=== PATIENT | female | born 1985 | race Caucasian/White ===

== ENCOUNTER → 2016-08-14 | Outpatient (CLI) | payer MEDICAID ==
[~2016-08-14] MED LIST: ACET325T51 PO; AMPH20TA3 PO; AMPH30TA4 PO; ARIP5TAB PO; BREX1TAB PO; DOXY100C2 PO; FLUO20CA30 PO; HYDR-4246 PO; IBUP-1724 PO; PARO10TA16 PO
--- NOTE | 2016-08-14 16:00 | DI ---
Indication: ITS.REASON: N92.0 SPOTTING; Z97.[address]; N94.10 DYSPAREUNIA IN FEMALE PROCEDURE: US PELVIC NON OB W/TRANS VAG: Encounter: Initial Comparison: None FINDINGS: Transvaginal and transabdominal pelvic imaging was performed. The uterus measures 9.9 x 3.6 x 4.4 cm. The parenchyma is homogeneous without fibroids. The endometrial stripe appears normal with an appropriately positioned IUD. Both ovaries are identified and normal in appearance. The right ovary measures 2.7 x 2.1 x 1.7 cm. The left ovary measures 3.7 x 1.7 x 1.4 cm. There are no abnormal adnexal masses detected. No free fluid. Doppler flow to both ovaries. IMPRESSION: Iodine appears appropriate position by ultrasound. Unremarkable pelvic sonogram. .
== END ==
LOC: IMA 14:47
PROVIDERS: ATTEND Registered Nurse
DX: N92.0 Excessive and frequent menstruation with regular cycle (principal); N94.10 Unspecified dyspareunia; Z97.5 Presence of (intrauterine) contraceptive device

== ENCOUNTER 2016-08-23 11:06 | Emergency (ER) | payer MEDICAID ==
[~2016-08-23] VITALS: Ht 167.6 cm; Wt 79.2 kg
[~2016-08-23 11:06] MED LIST changes: -ACET325T51 PO; -AMPH20TA3 PO; -BREX1TAB PO; -DOXY100C2 PO; -FLUO20CA30 PO; -HYDR-4246 PO
[2016-08-23 11:10] VITALS: Ht 167.6 cm; Wt 79.2 kg
--- OUTSIDE RECORDS SUMMARY | 2016-08-23 11:12 | XMS REPORT ---
Author Tk Scruggs Organization [employer] Address Unknown Phone Unavailable Care Team Providers Care Multimedia Programmer Name Role Phone Tk Gillette CP Unavailable Allergies, Adverse Reactions, Alerts Substance Reaction Event Type Cefaclor hives Drug Allergy Problems Problem Type Condition Code Onset Dates Condition Status Problem Generalized anxiety disorder 300.02 Active Assessment Pain in left foot M79.672 Active Problem Gastro-esophageal reflux disease without esophagitis K21.9 Active Assessment Gastro-esophageal reflux disease without esophagitis K21.9 Active Assessment Frequency of micturition R35.0 Active Assessment Localized swelling, mass and lump, left lower limb R22.42 Active Assessment Plantar fascial fibromatosis M72.2 Active Medications Medication Code System Code Instructions Start Date End Date Status Dosage Tylenol [facility] [address]-72 325 MG Orally every 6 hrs Feb 18, 2016Jan 1 to 2 tablets as needed for pain Flonase [facility] [address]-21 50 MCG/ACT Nasally Once a day Jan 03, 2015 1 spray in each nostril Aleve [facility] [address]-21 220 MG Orally every 12 hrs 1 tablet as needed Adderall [facility] [address]-57 30 MG Orally BID 1 tablet Abilify [facility] [address]-07 5 MG Orally Once a day .5 tablet Prozac NDC 0 20 Oral DAILY 1 Procedures Procedure Coding System Code Date OFFICE VISIT, EST-LOW COMPLEXITY (15 MIN.) CPT-4 79324 Feb 18, 2016 Vital Signs Date/Time: Feb 18, 2016 Temperature 98.3 F Height 65 in Weight 170.12 lbs Blood Pressure Diastolic 74 mm Hg Blood Pressure Systolic 116 mm Hg Cardiac Monitoring Heart Rate 103 /min BMI 28.31 Index Oximetry 96 % Results No Known Results Summary Purpose [employer] Submission
--- OUTSIDE RECORDS SUMMARY | 2016-08-23 11:12 | XMS REPORT ---
Author Author Tk Gillette Organization [employer] Address Unknown Phone Unavailable Care Team Providers Care Real Estate Office Supervisor Name Role Phone Tk Gillette CP Unavailable Allergies No Known Allergies Problems Problem Type Condition Code Onset Dates Condition Status Problem Generalized anxiety disorder 300.02 Active Assessment Frequency of micturition R35.0 Active Problem Gastro-esophageal reflux disease without esophagitis K21.9 Active Assessment Localized swelling, mass and lump, left lower limb R22.42 Active Medications No Known Medications Results No Known Results Summary Purpose [employer] Submission
--- OUTSIDE RECORDS SUMMARY | 2016-08-23 11:12 | XMS REPORT ---
Author Author Ann Mejía Organization [employer] Address Unknown Phone Unavailable Care Team Providers Care Cleaning Attendant Name Role Phone Ann Mejía CP Unavailable Allergies No Known Allergies Problems Problem Type Condition Code Onset Dates Condition Status Problem Generalized anxiety disorder 300.02 Active Assessment Localized swelling, mass and lump, left lower limb R22.42 Active Problem Gastro-esophageal reflux disease without esophagitis K21.9 Active Assessment Pain in left foot M79.672 Active Assessment Frequency of micturition R35.0 Active Medications No Known Medications Procedures Procedure Coding System Code Date URINE CULTURE CPT-4 05984 Feb 19, 2016 TEST, IN HOUSE CPT-4 54849 Feb 19, 2016 Results No Known Results Summary Purpose [employer] Submission
--- OUTSIDE RECORDS SUMMARY | 2016-08-23 11:12 | XMS REPORT | Continuity of Care Document ---
Author Author [facility] Organization [facility] Address Unknown Phone Unavailable Support Name Relationship Address Phone SEPTEMBER, PHAN Koehler DO Caregiver [address] [place] [address] Unavailable LAZARO BANGURA DO Caregiver [address] [place] [address] Unavailable ALEXIA CHAPMAN Next Of Kin [address] [place] [address] Insurance Providers Guarantor Linda Nance Address [address] [place] [address] Email [email or web address] Payer [employer] Other Policy Number [id number] Subscriber's Name Linda Nance Relationship 18 Self Group Number [id number] Advance Directives Directive Response Recorded Date/Time Advanced Directives Type None 02/21/16 6:20am Chief Complaint and Reason for Visit Chief Complaint General Reason for Visit Nonallopathic lesion of lower extremities Common peroneal neuropathy Problems Active Problems Medical Problem Onset Date Status Blocked eustachian tube Unknown Acute Blocked eustachian tube Unknown Acute Cephalalgia Unknown Acute Hx of otitis media Unknown Acute MIGRAINE Unknown Acute Otalgia of right ear Unknown Acute Passive suicidal ideations Unknown Acute URI Unknown Acute UTI (urinary tract infection) Unknown Acute Viral syndrome Unknown Acute Past Problems Medical Problem Onset Date Common peroneal neuropathy Unknown Nonallopathic lesion of lower extremities Unknown Medications Current Home Medications Medication Dose Units Route Directions Days Qty Instructions Start Date Amphetamine/Dextroamphetamine (Adderall) 30 Mg Tablet 30 Mg Oral Twice A Day 05/14/12 Aripiprazole (Abilify) 5 Mg Tablet 5 Mg Oral Daily 05/14/12 Ibuprofen 200 Mg Tablet 400 Mg Oral Every 4 Hours as needed for Pain 09/10/15 Paroxetine Hcl (Paxil) 10 Mg Tablet 10 Mg Oral Daily 09/10/15 Past Home Medications Medication Directions Ordered Status Acetaminophen (Tylenol) 500 Mg Tablet, Tab Oral As Needed 09/05/11 Discontinued Acetaminophen (Tylenol Extra Strength) 500 Mg Tablet, 500 Mg Oral 10/12/09 Discontinued Amphetamine/Dextroamphetamine (Adderall) 30 Mg Tablet, 60 Mg Oral Daily 11/27 Discontinued Aripiprazole (Abilify) 5 Mg Tablet, 2.5 Mg Oral Daily 12/27/10 Discontinued Aripiprazole (Abilify) 2 Mg Tablet, 2.5 Mg Oral Daily 02/03/10 Discontinued Diflucan , 05/14/12 Discontinued Diphenhydramine Hcl (Benadryl) 25 Mg Capsule, 25 Mg Oral As Needed 12/11/11 Discontinued Lorazepam (Ativan) 1 Mg Tablet, 1 Mg Oral As Needed 02/03/10 Discontinued Naproxen Sodium (Aleve) 220 Mg Tablet, As Needed 01/05/10 Discontinued Ondansetron Hcl (Zofran) 4 Mg Tablet, 4 Mg Oral As Needed 12/11/11 Discontinued Paroxetine Hcl (Paxil) 10 Mg Tablet, 20 Mg Oral Daily 02/03/10 Discontinued Paroxetine Hcl (Paxil) 20 Mg Tablet, 20 Mg Oral Daily 08/27/09 Discontinued Promethazine Hcl (Phenergan) 25 Mg Tablet, 25 Mg Oral As Needed 12/11/11 Discontinued Xanax , Oral As Needed 12/27/10 Discontinued Zofran , As Needed 09/23/08 Discontinued Social History Social History Problem Response Recorded Date/Time Onset Date Status Chewing Tobacco Status No 02/21/2016 6:20am Not Applicable Not Applicable Hx Substance Use No 02/21/2016 6:20am Not Applicable Not Applicable Hx Alcohol Use No 02/21/2016 6:20am Not Applicable Not Applicable Tobacco Usage smoke 10/30/2014 7:34pm Not Applicable Not Applicable Query Response Start Date Stop Date Smoking Status Current every day smoker Hospital Discharge Instructions No hospital discharge instructions. Plan of Care Discharge Date 02/21/16 8:50am Disposition 01 DISCHARGED HOME, SELF-CARE Condition at Discharge Improved Instructions/Education Provided Peripheral Neuropathy Prescriptions See Medication Section Referrals LAZARO BANGURA DO Order Date: 1 Week Address: [address] [place] [phone] Note: Additional Instructions/Education Your nerve was compressed behind your left fibula (leg bone). It is now no longer trapped. There was no evidence of a pinched nerve in your back or of a deep vein thrombosis. Take OTC meds as needed for pain. Follow up with your doctor. Care Plan and Goals Physician Care Plan Problem: Common peroneal neuropathy Goal: Follow up with primary care provider Instructions: Take medications and follow care plan as discussed/written Functional Status No functional status results. Allergies, Adverse Reactions, Alerts Allergen Type Severity Reaction Status Last Updated Cefaclor Allergy Severe HIVES Active 02/21/16 Immunizations Query Response on File Recorded Date/Time Hx Influenza Vaccination No 12/30/14 10:15pm Hx Pneumococcal Vaccination No 12/30/14 10:15pm Hx Tetanus, Diptheria, Pertussis No 12/30/14 10:15pm Hx Influenza Vaccination No 12/30/14 10:15pm Hx Tetanus, Diptheria, Pertussis No 12/30/14 10:15pm Influenza Vaccine Hx NOT IN PAST 12 MONTHS 02/21/16 6:20am Vital Signs Acute Vital Signs Vital Response Date/Time Temperature (Fahrenheit) 98.1 deg F (96.8 - 99.1) 02/21/2016 8:50am Temperature (Calculated Celsius) 36.20249 degrees C (36.0 - 37.3) 02/21/2016 8:50am Pulse Rate (adult) 78 bpm (60 - 100) 02/21/2016 8:50am Respiratory Rate 16 breaths/min (10 - 20) 02/21/2016 8:50am O2 Sat by Pulse Oximetry 98 % (90 - 100) 02/21/2016 8:50am Blood Pressure 133/71 mm Hg 02/21/2016 8:50am Height (Feet) 5 feet 02/21/2016 6:20am Height (Inches) 4.50 inches 02/21/2016 6:20am Weight (Kilograms) 77.000 kg 02/21/2016 6:20am Body Mass Index (BMI) 28.0 02/21/2016 6:20am Results Laboratory Results Test Name Result Units Flags Reference Collection Date/Time Result Date/ Time Comments Urine Collection Type CLEANCATCH-MIDSTREAM 02/18/2016 4:14pm 2015 4:24pm Urine Color YELLOW YELLOW 02/18/2016 4:14pm 02/18/2016 4:24pm Urine Turbidity CLEAR CLEAR 02/18/2016 4:14pm 02/18/2016 4:24pm Urine Specific [place] 1.010 L 1.015-1.025 02/18/2016 4:14pm 2015 4:24pm Urine pH 6.0 5.0-8.0 02/18/2016 4:14pm 02/18/2016 4:24pm Urine Leukocyte Esterase 2+ A NEGATIVE 02/18/2016 4:14pm 02/18/2016 4: 24pm Urine Nitrite NEGATIVE NEGATIVE 02/18/2016 4:14pm 02/18/2016 4:24pm Urine Protein NEGATIVE NEGATIVE 02/18/2016 4:14pm 02/18/2016 4:24pm Urine Glucose (UA) NEGATIVE NEGATIVE 02/18/2016 4:14pm 02/18/2016 4: 24pm Urine Ketones NEGATIVE NEGATIVE 02/18/2016 4:14pm 02/18/2016 4:24pm Urine Urobilinogen 0.2 EU/DL NORMAL 02/18/2016 4:14pm 02/18/2016 4: 24pm Urine Bilirubin NEGATIVE NEGATIVE 02/18/2016 4:14pm 02/18/2016 4: 24pm Urine Blood TRACE-LYSED A NEGATIVE 02/18/2016 4:pm 02/18/2016 4: 24pm Urine WBC 10-20 /HPF H 0-5 02/18/2016 4:14pm 02/18/2016 4:58pm Urine RBC 0-1 /HPF 0-3 02/18/2016 4:14pm 02/18/2016 4:58pm Urine Squamous Epithelial Cells 10-20 02/18/2016 4:14pm 02/18/2016 4:58pm Urine Bacteria TRACE H NEGATIVE 02/18/2016 4:14pm 02/18/2016 4:58pm Urine Culture Indicated CULT NOT INDICATED 02/18/2016 4:14pm 2015 4:58pm White Blood Count 9.7 T/MM3 4.5-11.0 02/21/2016 7:04am 02/21/2016 7: 09am Red Blood Count 5.03 M/MM3 4.00-5.20 02/21/2016 7:04am 02/21/2016 7: 09am Hemoglobin 15.4 GM/DL 12-16 02/21/2016 7:04am 02/21/2016 7:09am Hematocrit 45.2 % 36-46 02/21/2016 7:04am 02/21/2016 7:09am Mean Corpuscular Volume 89.9 UM3 80-100 02/21/2016 7:04am 02/21/2016 7: 09am Mean Corpuscular Hemoglobin 30.6 UUG 26-34 02/21/2016 7:04am 2015 7:09am Mean Corpuscular Hemoglobin Concent 34.1 GM/DL 31-37 02/21/2016 7:04am 02/21/2016 7:09am RDW Standard Deviation 41.9 FL 36.9-50.2 02/21/2016 7:04am 02/21/2016 7 :09am Platelet Count 291 T/MM3 130-400 02/21/2016 7:04am 02/21/2016 7:09am Mean Platelet Volume 8.7 UM3 L 9.4-12.4 02/21/2016 7:04am 02/21/2016 7: 09am Prothromb Time International Ratio 0.90 L 0.99-1.21 02/21/2016 7:04am 02/21/2016 7:29am THERAPUTIC RANGE=2.00-3.00 FOR ANTI-THROMBOSIS THERAPUTIC RANGE=2.50-3.50 FOR IMPLANTED VALVE D-Dimer < 150 NG/ML 0-230 02/21/2016 7:04am 02/21/2016 7:29am <230 NG/ ML D-DU=PRESUMPTIVE NEGATIVE FOR PE OR DVT >230 NG/ML D-DU=ADDITIONAL EVAL FOR PE OR DVT RECOMMENDED Name: LINDA NANCE Unit #: [id number] : 1985 Sex: F Admit Date: Loc / Svc: ED Discharge Date: DIAGNOSTIC IMAGING REPORT Report #: [id number] [facility] [place] Indication: ITS.REASON: S1 nerve root pain PROCEDURE: SACRUM COCCYX: Encounter: Initial Comparison: None Findings/ Impression: No displaced sacrococcygeal fracture seen. . Procedures No known history of procedures. Encounters Encounter Location Arrival/Admit Date Discharge/Depart Date Attending Provider Departed Emergency Room [facility] 02/21/16 6:18am 02/21/16 8: 50am SEPTEMBERPHAN DO Registered Clinic [facility] 02/18/16 3:32pm LAZARO BANGURA DO Recent Diagnosis
--- OUTSIDE RECORDS SUMMARY | 2016-08-23 11:12 | XMS REPORT ---
Author Author Tk Gillette Organization [employer] Address Unknown Phone Unavailable Care Team Providers Care Die Cleaner Name Role Phone Tk Gillette CP Unavailable Allergies No Known Allergies Problems Problem Type Condition Code Onset Dates Condition Status Problem Generalized anxiety disorder 300.02 Active Problem Gastro-esophageal reflux disease without esophagitis K21.9 Active Medications No Known Medications Results No Known Results Summary Purpose [employer] Submission
[2016-08-23 12:27] LABS: BLOOD, URINE NEGATIVE (NEGATIVE); COLOR,URINE YELLOW (YELLOW); LEUKOCYTE ESTERASE ,URINE NEGATIVE (NEGATIVE); NITRITE,URINE NEGATIVE (NEGATIVE); UROBILINOGEN,URINE 0.2 EU/DL (NORMAL)
--- NOTE | 2016-08-23 12:51 | ERPDOC ---
Departure Disposition Decision Date: Aug 23, 2016 Disposition Decision Time: 15:59 (LALO GARAY APRN) Disposition: 01 DISCHARGED HOME, SELF-CARE Impression Impression (LALO GARAY APRN) Impression: Primary Impression: Pelvic pain Condition: Improved Seen By: Mid-level only (LALO GARAY APRN) Referrals: LAZARO BANGURA DO (Family) Patient Instructions: Pelvic Pain (ED) Problems/Meds/Labs Reviewed?: Yes Medications reviewed and manag: Yes (LALO GARAY APRN) Additional Instructions: Finish already prescribed doxycycline. You may take OTC ibuprofen 800mg every 8 hours for pain. You may take norco 5/325mg, 1-2 tabs every 6 hours for pain as needed. Medication may cause drowsiness so avoid operating heavy machinery, driving or drinking alcohol while taking. If your symptoms are not improving after finishing her doxycycline follow with health ministries or other provider of choice for possible removal of IUD, sooner if worsting symptoms. Follow treatment plan. Follow up care ordered?: Yes Mental Status: Alert, Oriented (LALO GARAY APRN) Scripts Hydrocodone/Acetaminophen (Tracy 5-325 Tablet) 5-325 Tablet 1-2 TAB PO Q6HPRN for PAIN, #15 TAB Prov: LALO GARAY APRN 08/23/16 HPI - Female General Chief Complaint: Female Urogenital Problems Stated Complaint: SHARP ABD PAIN Time Seen by Provider: 12:51 Source: patient (LALO GARAY APRN) Time Seen by Provider: 12:51 (TONO WINKLER DO) HPI - Female Initial Comments 31 YO F present to ED with pelvic pain for past 2 weeks. Patient was seen at and had normal labs and pelvic swabs per patients. Patient also had US to r/o ovarian cyst. Patient says that pain initially was intermittent but it has become more constant over last 1-2 days. Patient denies fever, chills, nausea, vomiting, diarrhea, constipation, dysuria or urinary frequency. Patint is in a monogamous relationship for greater than 3 months. Patient has an IUD in which is been in for approximately 4-1/2 years is scheduled to come out in January of this year. Patient states that since she had a IUD placed she has had no periods, however states that recently she's had occasional spotty. Patient was started on doxycycline 3 days ago. Pain Scale: Now: 5/10 Severity/Quality: cramping, sharpness Associated Symptoms: DENIES: diaphoresis, dysuria, fever/chills, loss of bladder control, lower back pain, lumps, nausea/vomiting, nocturia, polyuria, urinary frequency Expected Date of Delivery: Dec 31, 2011 : 4 Para: 2 (LALO GARAY APRN) Allergies: Coded Allergies: cefaclor (Verified Allergy, Severe, HIVES, 08/23/16) 1 - Reports pain (LALO GARAY INFORMATION RECEPTIONIST) Past History Past Medical History ENMT: ear infections Cardiac: DENIES: angina Hx Echocardiogram: No Respiratory: DENIES: asthma GI: DENIES: ulcers Female: kidney stones Neurological: migraines Musculoskeletal: back pain Psychological: ADHD, bipolar, depression (LALO GARAY INFORMATION RECEPTIONIST) Surgical History General: gallbladder, other, tonsils Reproductive/: tubal ligation (LALO GARAY APRN) Family History Family PMH: FOUND: other (noncontributory) (LALO GARAY APRN) Vaccines Hx Influenza Vaccination: No Hx Pneumococcal Vaccination: No Hx Tetanus, Diptheria, Pertuss: No (LALO GARAY INFORMATION RECEPTIONIST) Social History Sexuality: male partner (LALO GARAY APRN) Review of Systems Constitutional Constitutional: DENIES: chills, dizziness, fever, weakness (LALO GARAY INFORMATION RECEPTIONIST) Eyes General: DENIES: erythema, exudate Lids/Accessories: DENIES: erythema, swelling (LALO GARAY APRN) ENMT Ears: DENIES: pain Hearing: DENIES: hearing loss Sinuses: DENIES: congestion, rhinorrhea Mouth/Throat: DENIES: sore throat (LALO GARAY INFORMATION RECEPTIONIST) Cardiovascular Cardiac: DENIES: chest pain, murmur Rhythm/Rate: DENIES: palpitations (LALO GARAY INFORMATION RECEPTIONIST) Pulmonary Respiratory: DENIES: cough, dyspnea (LALO GARAY INFORMATION RECEPTIONIST) GI Upper Abdomen: DENIES: nausea, pain, vomiting Lower Abdomen: pain, see HPI, DENIES: diarrhea (LALO GARAY INFORMATION RECEPTIONIST) General: DENIES: dysuria, pain (LALO GARAY INFORMATION RECEPTIONIST) Musculoskeletal General: DENIES: joint pain, pain, tenderness (FAWAD AGRAYS A INFORMATION RECEPTIONIST) Integumentary Skin: DENIES: color change, itching, rash (FAWAD GARAYS A INFORMATION RECEPTIONIST) Neurological General: DENIES: ataxia, change in strength, numbness, paralysis/paresis, weakness (FAWAD GARAYS A INFORMATION RECEPTIONIST) Psychiatric Psychiatric: DENIES: anxiety, depression, nervousness (FAWAD GARAYS A INFORMATION RECEPTIONIST) Physical Exam General General Nourishment: well nourished, well developed, no acute distress, adult General Body Habitus: well groomed (FAWAD GARAYS A INFORMATION RECEPTIONIST) Vitals and Pain First Documented Vital Signs Date Time Temp Pulse Resp B/P Pulse Ox O2 Delivery O2 Flow Rate FiO2 08/23/16 11:10 97.2 96 14 122/87 95 Room Air (TONO WINKLER DO) Vitals and Pain Weight: Kilograms: 79.200 Height (feet): 5 Height (inches): 6.00 Triage Pain Scale: (FAWAD GARAYS A INFORMATION RECEPTIONIST) Eyes (brief) Eyes Brief: found: EOMI (FAWAD GARAYS A INFORMATION RECEPTIONIST) ENMT (brief) ENMT Brief: NOT FOUND: nasal exudate, nasal swelling, pharnyx erythema (FAWAD GARAYS A INFORMATION RECEPTIONIST) Neck (brief) Neck: FOUND: trachea midline (FAWAD GARAYS A INFORMATION RECEPTIONIST) Respiratory (brief) Respiratory: FOUND: clear all gonzales, equal bilaterally, symmetrical (FAWAD GARAYS A INFORMATION RECEPTIONIST) Cardiovascular (brief) Cardiac: FOUND: regular rate, regular rhythm (FAWAD GARAYS A INFORMATION RECEPTIONIST) Abdomen Palpation: FOUND: soft, tender (mild TTP over right pubic area), NOT FOUND: McBurney's point tender, hepatomegaly, involuntary guarding, rebound, splenomegaly, voluntary guarding Auscultation: FOUND: hypoactive (x4) (TANISHALALO A INFORMATION RECEPTIONIST) Musculoskeletal (brief) Musculoskeletal Brief: NOT FOUND: deformity, tenderness (GARAYLALO A INFORMATION RECEPTIONIST) Integumentary (brief) Integumentary Brief: FOUND: dry, pink, warm (TANISHALALO A INFORMATION RECEPTIONIST) Neurologic (brief) Neurological Brief: FOUND: CN w/o gross def to obs, motor-no gross deficits, sensory-no gross deficits (GARAYFAWADS A INFORMATION RECEPTIONIST) Psychiatric (brief) Psychiatric Brief: FOUND: alert, normal affect, oriented (LALO GARAY APRN ) Differential Diagnoses Considering: Endometriosis, Endometritis, PID, UTI, Bacterial Vaginitis, Yeast Vaginitis (ALLO GARAY APRN) Progress Results/Orders Orders Procedure Category Date Status Time Ua, Dip Wreflex LAB 08/23/16 Complete Microsc & Virology Teacher LAB 08/23/16 Complete Qualitative, Urine 12:20 Cbc W/Auto LAB 08/23/16 Complete Diff-Reflex Manual Bmp - Basic Metabolic LAB 08/23/16 Complete Panel Iv Lock (Ed Only) EDM 08/23/16 Transmitted 13:58 Morphine Sulfate PHA 08/23/16 Complete (Morphine) 14:00 Ondansetron Inj PHA 08/23/16 Complete (Zofran) 14:00 Ct Abd/Pelvis CT 08/23/16 Resulted W/Contrast Only Saline Flush (Iv PHA 08/23/16 Complete Flush) 14:14 Normal Saline (Ns) PHA 08/23/16 Complete 14:14 Iohexol (Omnipaque) PHA 08/23/16 Complete 14:15 Ketorolac (Toradol) PHA 08/23/16 Complete 15:15 Normal Saline (Ns) PHA 08/23/16 Complete 15:15 (TONO WINKLER DO) Lab Results Laboratory Tests Test 08/23/16 12:20 08/23/16 13:21 Urine Collection Type Cleancatch-midstream Urine Color Yellow Urine Turbidity Clear Urine pH 7.5 Urine Specific [place] 1.015 Urine Protein Negative Urine Glucose (UA) Negative Urine Ketones Negative Urine Blood Negative Urine Nitrite Negative Urine Bilirubin Negative Urine Urobilinogen 0.2EU/DL Urine Leukocyte Esterase Negative Urinalysis Comment Microscopic not ind. Urine Test Negative White Blood Count 12.8T/MM3 Red Blood Count 4.72M/MM3 Hemoglobin 14.5GM/DL Hematocrit 42.8% Mean Corpuscular Volume 90.7UM3 Mean Corpuscular Hemoglobin 30.7UUG Mean Corpuscular Hemoglobin Concent 33.9GM/DL RDW Standard Deviation 43.9FL Platelet Count 284T/MM3 Mean Platelet Volume 8.8UM3 Immature Granulocyte % (Auto) 0.2% Neutrophils (%) (Auto) 77.9% Lymphocytes (%) (Auto) 14.6% Monocytes (%) (Auto) 6.2% Eosinophils (%) (Auto) 0.9% Basophils (%) (Auto) 0.2% Absolute Immature Granulocyte (auto 0.03T/MM3 Absolute Neutrophils (auto) 10.0T/MM3 Absolute Lymphocytes (auto) 1.9T/MM3 Absolute Monocytes (auto) 0.8T/MM3 Absolute Eosinophils (auto) 0.1T/MM3 Absolute Basophils (auto) 0.0T/MM3 Turbidity < 20 Sodium Level 142MEQ/L Potassium Level 4.5MEQ/L Chloride Level 106MEQ/L Carbon Dioxide Level 29MEQ/L Anion Gap 7MEQ/L Blood Urea Nitrogen 8.0MG/DL Creatinine 0.6MG/DL Glomerular Filtration Rate Calc 117 BUN/Creatinine Ratio 13RATIO Glucose Level 106MG/DL Calculated Osmolality 271MOSM/KG Calcium Level 9.0MG/DL Icterus Index < 2 Chemistry Specimen Hemolysis < 15 (TONO WINKLER DO) Medications Current ED Medications Morphine Sulfate (Morphine) 4 mg O ONCE IV Last administered on 08/23/16 14: 19; Start 08/23/16 at 14:00; Stop 08/23/16 at 14:01; Status DC Ondansetron HCl (Zofran) 4 mg O ONCE IV Last administered on 08/23/16 14:15; Start 08/23/16 at 14:00; Stop 08/23/16 at 14:01; Status DC Sodium Chloride 10 ml 10 ml STK-MED ONCE .ROUTE ; Start 08/23/16 at 14:14; Stop 08/23/16 at 14:15; Status DC Sodium Chloride (NS) 100 ml @ As Directed STK-MED ONCE .ROUTE ; Start 08/23/16 at 14:14; Stop 08/23/16 at 14:15; Status DC Iohexol (Omnipaque) 1 bottle STK-MED ONCE .ROUTE ; Start 08/23/16 at 14:15; Stop 08/23/16 at 14:16; Status DC Ketorolac Tromethamine 30 mg 30 mg O ONCE IV Last administered on 08/23/16 15 :15; Start 08/23/16 at 15:15; Stop 08/23/16 at 15:16; Status DC Sodium Chloride (NS) 500 ml @ 0 mls/hr Q0M ONCE IV Last administered on 3/26/ 17at 15:13; Start 08/23/16 at 15:15; Stop 08/23/16 at 15:16; Status DC (TONO WINKLER DO) Progress Progress CBC 12.8, no bands CMP and urine normal negative Hcg I discussed labs with patient and discuss risks benefits of CT scan. Patient would like CT of abdomen pelvis to try to determine what is causing abdominal pain. Patient has improving pain. I discussed CT results with patient and conversation I had with Dr. Webb. Patient verbalized understanding of treatment plan, completing doxycycline follow-up and return precautions. (LALO GARAY APRN) Consult/PCP Consult/PCP : Physician Contacted: Dr. Rachel Webb Type of discussion: Phone Consult/PCP Discussion Details I discussed patient's HPI, past medical history, labs, exam findings, vital signs and CT findings with Dr. Webb. She does not feel patient has PID based on exam findings described by provider and labs. She suggest patient finishing doxycycline and if she is still having pain considering having IUD taken out early. (LALO GARAY APRN) CT CT : CT: Abd/Pelvis IV contrast Interpretation: Abnormal (prominent intrapelvic stranding anterior to the uterus. A nonspecific low attenuation liver lesion.) (LALO GARAY APRN) LALO GARAY APRN Aug 23, 2016 12:51 TONO WINKLER DO Aug 26, 2016 06:34
--- NOTE | 2016-08-23 12:53 | NUR ---
PROVIDER Altagracia GARAY APRN AT BEDSIDE.
[2016-08-23] MEDS ORDERED: BREX1TAB PO (13:09)
[2016-08-23] MEDS ORDERED: ACET325T51 PO (13:09)
[2016-08-23] MEDS ORDERED: DOXY100C2 PO (13:09)
[2016-08-23] MEDS ORDERED: AMPH20TA3 PO (13:09)
[2016-08-23] MEDS ORDERED: FLUO20CA30 PO (13:09)
--- NOTE | 2016-08-23 13:16 | NUR ---
LAB AT BEDSIDE FOR BLOOD DRAW.
[2016-08-23 13:26] LABS: BASOPHILS % (AUTO) 0.2 % (0-2); EOSINOPHILS # (AUTO) 0.1 T/MM3 (0-0.5); EOSINOPHILS % (AUTO) 0.9 % (0-4); HCT - HEMATOCRIT 42.8 % (36-46); HGB - HEMOGLOBIN 14.5 GM/DL (12-16); IMMATURE GRANULOCYTE # (AUTO) 0.03 T/MM3 (0.00-0.03); IMMATURE GRANULOCYTE % (AUTO) 0.2 % (0.0-0.5); LYMPHOCYTES # (AUTO) 1.9 T/MM3 (1-4.8); LYMPHOCYTES % (AUTO) 14.6 % (23-45); MEAN CORPUSCULAR HGB 30.7 UUG (26-34); MEAN CORPUSCULAR HGB CONC(MCHC 33.9 GM/DL (31-37); MEAN CORPUSCULAR VOLUME 90.7 UM3 (80-100); MEAN PLATELET VOLUME 8.8 UM3 (9.4-12.4); MONOCYTES # (AUTO) 0.8 T/MM3 (0-0.8); MONOCYTES % (AUTO) 6.2 % (0-9.0); NEUTROPHILS % (AUTO) 77.9 % (33-66); RED BLOOD COUNT 4.72 M/MM3 (4.00-5.20); WBC - WHITE BLOOD COUNT 12.8 T/MM3 (4.5-11.0)
[2016-08-23 13:36] LABS: ANION GAP 7 MEQ/L (5-15); BUN/CREATININE RATIO 13 RATIO (6-26); CHLORIDE 106 MEQ/L (98-107); CO2 - CARBON DIOXIDE 29 MEQ/L (22-30); CREATININE 0.6 MG/DL (0.7-1.2); GLOMERULAR FILTRATION RATE 117; GLUCOSE 106 MG/DL (65-110); POTASSIUM 4.5 MEQ/L (3.6-5); SODIUM 142 MEQ/L (134-144)
--- NOTE | 2016-08-23 13:56 | NUR ---
REPORT RECEIVED FROM MADHAV CURRIE AND MERON CURRIE. CARE ASSUMED.
--- NOTE | 2016-08-23 13:56 | NUR ---
TWIN GARAY APRN AT BEDSIDE.
[2016-08-23] MEDS ORDERED: ONDANSETRON 4mg/2ml INJECTION IV ONE (14:00)
[2016-08-23] MEDS ORDERED: MORPHINE SULFATE 4 MG SYRINGE IV ONE (14:00)
[2016-08-23] MEDS ORDERED: NORMAL SALINE 100 ML ONE (14:14)
[2016-08-23] MEDS ORDERED: SALINE FLUSH 10ml SYRINGE ONE (14:14)
[2016-08-23] MEDS ORDERED: IOHEXOL 300 MG/ML 100ml INJECTION ONE (14:15)
--- NOTE | 2016-08-23 14:24 | NUR ---
CT PT TO CT VIA RNEY.
--- NOTE | 2016-08-23 14:35 | NUR ---
CT PT RETURNED.
--- NOTE | 2016-08-23 15:14 | NUR ---
STATUS/EDUCATION PROVIDED VERBAL INSTRUCTION REGARDING NS AND TORADOL. PT SUDDENLY BEGAN TO CRY AND HOLD UPPER MIDDLE TO L ABD. PT STATES "WHAT IS THIS PAIN?" REITERATED RATIONAL FOR FLUIDS AND TORADOL AND PROVIDED EMOTIONAL SUPPORT. PT GIVEN COOL CLOTH FOR FOREHEAD, PROVIDED MOIST SWAB FOR MOUTH.
[2016-08-23] MEDS ORDERED: NORMAL SALINE 500 ML IV ONE (15:15)
[2016-08-23] MEDS ORDERED: KETOROLAC 30mg/ml INJECTION IV ONE (15:15)
--- NOTE | 2016-08-23 15:46 | NUR ---
PT STATUS/PAIN RE-ASSESSMENT PT STATES HER HEAD FEELS "FUNNY" BUT HER LOWER PELVIC PAIN HAS IMPROVED. PT CURRENTLY RATING PAIN A 2/10 AND PT DENIES ANY NAUSEA. PT IS TEARFUL AND STATES SHE IS WORRIED THIS PAIN IS DUE TO A MISPLACED IUD AND ASKS TO SPEAK TO THE PROVIDER AGAIN. PT IS REASSURED THAT PROVIDER WILL GIVE HER THE RESULTS OF HER CT AND BE IN SHORTLY. PT HAS CALL LIGHT IN REACH, ALL V/S REAMIN WNL AND PT SHOWS NO SIGNS OF ACUTE DISTRESS.
--- NOTE | 2016-08-23 15:51 | NUR ---
PROVIDER FRANSISCA GARAY APRN IN ROOM WITH PT.
[2016-08-23] MEDS ORDERED: HYDR-4246 PO (16:03)
[2016-08-23 16:28] VITALS: BP 107/55; PULSE 86; RESP 14; TEMP 97.2; O2SAT 97
--- NOTE | 2016-08-23 21:14 | DI ---
Indication: ITS.REASON: RLQ abdominal/pelvic pain PROCEDURE: CT ABD/PELVIS W/CONTRAST ONLY: Encounter: Initial Comparison: None Technique: Axial CT images were performed through the abdomen and pelvis after the administration of intravenous contrast. Coronal and sagittal two-dimensional reformats. Automated Exposure Control and Iterative Reconstruction dose reducing techniques were utilized. Contrast: Omnipaque 300 100 mL Findings: The lung bases are clear. The liver shows multiple low-attenuation foci, most of which are too small to definitively characterize. These statistically most likely represent cysts and/or hemangiomas. The spleen, pancreas, adrenal glands and kidneys are normal. Gallbladder is surgically absent. No abdominal or pelvic adenopathy. There is a large area of inflammatory change in the fat of the anterior pelvis with evidence of vascular congestion and edema. Bladder is normal. Uterus has an intrauterine device within it. No evidence of a bowel obstruction. The appendix is normal. Bone windows are unremarkable for age. Impression: Significant inflammation in the pelvic fat which could be due to an epiploic appendagitis or omental infarct. This should be a benign self-limited condition responsive to conservative management. The preliminary report mentions pelvic inflammatory disease which may be possible but I have never seen that disease entity present in this fashion. There is a preliminary report by [employer]. .
== END 2016-08-23 16:28 | disposition home or self-care (01) ==
LOC: ED 11:06
DX: R10.2 Pelvic and perineal pain (principal)
CPT/HCPCS: 36415; 74177; 80048; 81003; 81025; 85025; 96361; 96374; 96375; 99284; J1885; J2405; J7050; Q9967

== ENCOUNTER 2016-09-27 13:56 | Emergency (ER) | payer MEDICAID ==
[~2016-09-27] VITALS: Ht 162.6 cm; Wt 77.9 kg
[~2016-09-27 13:56] MED LIST changes: +ACET325T51 PO; +AMPH20TA3 PO; -AMPH30TA4 PO; -ARIP5TAB PO; +BREX1TAB PO; +DOXY100C2 PO; +FLUO20CA30 PO; +HYDR-4246 PO; -IBUP-1724 PO; -PARO10TA16 PO
[2016-09-27 13:58] VITALS: Ht 162.6 cm; Wt 77.9 kg
--- OUTSIDE RECORDS SUMMARY | 2016-09-27 14:00 | XMS REPORT | Continuity of Care Document ---
Author Author [facility] Organization [facility] Address Unknown Phone Unavailable Support Name Relationship Address Phone TONO WINKLER DO Caregiver [address] [place] [address] Unavailable LAZARO BANGURA DO Caregiver [address] [place] [address] Unavailable ALEXIA CHAPMAN Next Of Kin [address] [place] [address] Insurance Providers Guarantor Linda Moncada Address [address] [place] [address] Email [email or web address] Payer [facility] Community Plan Policy Number [id number] Subscriber's Name AntwanLinda Cruz Relationship 18 Self Effective Date 16 Expiration Date 16 Advance Directives Directive Response Recorded Date/Time Advanced Directives Type None 08/23/16 12:46pm Chief Complaint and Reason for Visit Chief Complaint Female Urogenital Problems Reason for Visit [id number] Problems Active Problems Medical Problem Onset Date [...] Unknown Nonallopathic lesion of lower extremities Unknown Pelvic pain Unknown Medications Current Home Medications Medication Dose Units Route Directions Days Qty Instructions Start Date Acetaminophen 325 Mg Tablet 2 Tab Oral Twice A Day as needed for Pain 08/23/16 Amphet Asp/Amphet/D-Amphet (Adderall 20 Mg Tablet) 20 Mg Tablet 20 Mg Oral Twice A Day 08/23/16 Brexpiprazole (Rexulti) 1 Mg Tablet 1 Mg Oral Daily 08/23/16 Doxycycline Hyclate 100 Mg Capsule 100 Mg Oral Twice A Day 14 Days STARTING 08/20/16 08/23/16 Fluoxetine Hcl (Prozac) 20 Mg Capsule 20 Mg Oral Daily 08/23/16 Hydrocodone/Acetaminophen (Mclean 5-325 Tablet) 5-325 Tablet 1-2 Tab Oral Every 6 Hr Prn for Pain 15 Tablet 08/23/16 Past Home Medications Medication Directions Ordered Status [...] Problem Response Recorded Date/Time Onset Date Status Hx Substance Use N HX OF MARIJUANA, DENIES CURRENTLY 08/23/2016 12:49pm Not Applicable Not Applicable Hx Alcohol Use Y SOCIALLY 08/23/2016 12:49pm Not Applicable Not Applicable Tobacco Usage smoke 10/30/2014 7:34pm Not Applicable Not Applicable Query Response Start Date Stop Date Smoking Status Current every day smoker Hospital Discharge Instructions No hospital discharge instructions. Plan of Care Discharge Date 08/23/16 4:28pm Disposition 01 DISCHARGED HOME, SELF-CARE Condition at Discharge Improved Instructions/Education Provided Pelvic Pain (ED) Prescriptions See Medication Section Referrals LAZARO BANGURA DO Address: [address] [place] [phone] Additional Instructions/Education Finish already prescribed doxycycline. You may take OTC ibuprofen 800mg every 8 hours for pain. You may take norco 5/325mg, 1-2 tabs every 6 hours for pain as needed. Medication may cause drowsiness so avoid operating heavy machinery, driving or drinking alcohol while taking. If your symptoms are not improving after finishing her doxycycline follow with health ministries or other provider of choice for possible removal of IUD, sooner if worsting symptoms. Follow treatment plan. Care Plan and Goals Physician Care Plan Problem: Pelvic pain Goal: Follow up with primary care provider Instructions: Take medications and follow care plan as discussed/written Functional Status No functional status results. Allergies, Adverse Reactions, Alerts Allergen Type Severity Reaction Status Last Updated Cefaclor Allergy Severe HIVES Active 08/23/16 Immunizations Query Response on File Recorded Date/Time Hx Influenza Vaccination No 12/30/14 10:15pm Hx Pneumococcal Vaccination No 12/30/14 10:15pm Hx Tetanus, Diptheria, Pertussis No 12/30/14 10:15pm Hx Influenza Vaccination No 12/30/14 10:15pm Hx Tetanus, Diptheria, Pertussis No 12/30/14 10:15pm Influenza Vaccine Hx NOT REC'D 08/23/16 12:49pm Vital Signs Acute Vital Signs Vital Response Date/Time Temperature (Fahrenheit) 97.2 deg F (96.8 - 99.1) 08/23/2016 4:28pm Temperature (Calculated Celsius) 36.93997 degrees C (36.0 - 37.3) 08/23/2016 4:28pm Pulse Rate (adult) 86 bpm (60 - 100) 08/23/2016 4:28pm Respiratory Rate 14 breaths/min (10 - 20) 08/23/2016 4:28pm O2 Sat by Pulse Oximetry 97 % (90 - 100) 08/23/2016 4:28pm Blood Pressure 107/55 mm Hg 08/23/2016 4:28pm Height (Feet) 5 feet 08/23/2016 11:10am Height (Inches) 6.00 inches 08/23/2016 11:10am Weight (Kilograms) 79.200 kg 08/23/2016 11:10am Body Mass Index (BMI) 28.0 08/23/2016 11:10am Results Laboratory Results Test Name Result Units Flags Reference Collection Date/Time Result Date/ Time Comments White Blood Count 12.8 T/MM3 H 4.5-11.0 08/23/2016 1:08/23/2016 1: pm Red Blood Count 4.72 M/MM3 4.00-5.20 08/23/2016 1:08/23/2016 1: 26pm Hemoglobin 14.5 GM/DL 12-16 08/23/2016 1:08/23/2016 1:pm Hematocrit 42.8 % 36-46 08/23/2016 1:08/23/2016 1:pm Mean Corpuscular Volume 90.7 UM3 80-100 08/23/2016 1:08/23/2016 1: pm Mean Corpuscular Hemoglobin 30.7 UUG 26-34 08/23/2016 1:2016 1:pm Mean Corpuscular Hemoglobin Concent 33.9 GM/DL 31-37 08/23/2016 1:08/23/2016 1:pm RDW Standard Deviation 43.9 FL 36.9-50.2 08/23/2016 1:08/23/2016 1 :pm Platelet Count 284 T/MM3 130-400 08/23/2016 1:08/23/2016 1:pm Mean Platelet Volume 8.8 UM3 L 9.4-12.4 08/23/2016 1:08/23/2016 1: pm Neutrophils (%) (Auto) 77.9 % H 33-66 08/23/2016 1:08/23/2016 1: pm Lymphocytes (%) (Auto) 14.6 % L 23-45 08/23/2016 1:08/23/2016 1: pm Monocytes (%) (Auto) 6.2 % 0-9.0 08/23/2016 1:08/23/2016 1:26pm Eosinophils (%) (Auto) 0.9 % 0-4 08/23/2016 1:08/23/2016 1:26pm Basophils (%) (Auto) 0.2 % 0-2 08/23/2016 1:08/23/2016 1:26pm Immature Granulocyte % (Auto) 0.2 % 0.0-0.5 08/23/2016 1:2016 1:26pm Absolute Neutrophils (auto) 10.0 T/MM3 H 1.8-7.7 08/23/2016 1:08/23 1:26pm Absolute Lymphocytes (auto) 1.9 T/MM3 1-4.8 08/23/2016 1:2016 1:26pm Absolute Monocytes (auto) 0.8 T/MM3 0-0.8 08/23/2016 1:08/23/2016 1:26pm Absolute Eosinophils (auto) 0.1 T/MM3 0-0.5 08/23/2016 1:2016 1:26pm Absolute Basophils (auto) 0.0 T/MM3 0-0.2 08/23/2016 1:08/23/2016 1:26pm Absolute Immature Granulocyte (auto 0.03 T/MM3 0.00-0.03 08/23/2016 1: 08/23/2016 1:26pm Icterus Index < 2 0-7 08/23/2016 1:08/23/2016 1:36pm Chemistry Specimen Hemolysis < 15 0-25 08/23/2016 1:08/23/2016 1 :36pm 0-25: Specimen Exhibited No Hemolysis. Turbidity < 20 0-20 08/23/2016 1:08/23/2016 1:36pm Sodium Level 142 MEQ/L 134-144 08/23/2016 1:08/23/2016 1:36pm Potassium Level 4.5 MEQ/L 3.6-5 08/23/2016 1:08/23/2016 1:36pm Chloride Level 106 MEQ/L 98-107 08/23/2016 1:08/23/2016 1:36pm Carbon Dioxide Level 29 MEQ/L 22-30 08/23/2016 1:08/23/2016 1: 36pm Anion Gap 7 MEQ/L 5-15 08/23/2016 1:08/23/2016 1:36pm Blood Urea Nitrogen 8.0 MG/DL 7-17 08/23/2016 1:08/23/2016 1:36pm Creatinine 0.6 MG/DL L 0.7-1.2 08/23/2016 1:21pm 08/23/2016 1:36pm BUN/Creatinine Ratio 13 RATIO 6-26 08/23/2016 1:21pm 08/23/2016 1:36pm Glomerular Filtration Rate Calc 117 08/23/2016 1:21pm 08/23/2016 1: 36pm Glucose Level 106 MG/DL 65-110 08/23/2016 1:21pm 08/23/2016 1:36pm Calculated Osmolality 271 MOSM/KG 261-280 08/23/2016 1:21pm 08/23/2016 1:36pm Calcium Level 9.0 MG/DL 8.4-10.2 08/23/2016 1:21pm 08/23/2016 1:36pm Urine Collection Type CLEANCATCH-MIDSTREAM 08/23/2016 12:20pm 08/23 12:27pm Urine Color YELLOW YELLOW 08/23/2016 12:20pm 08/23/2016 12:27pm Urine Turbidity CLEAR CLEAR 08/23/2016 12:20pm 08/23/2016 12:27pm Urine Specific [place] 1.015 1.015-1.025 08/23/2016 12:20pm 2016 12:27pm Urine pH 7.5 5.0-8.0 08/23/2016 12:20pm 08/23/2016 12:27pm Urine Leukocyte Esterase NEGATIVE NEGATIVE 08/23/2016 12:20pm 2016 12:27pm Urine Nitrite NEGATIVE NEGATIVE 08/23/2016 12:20pm 08/23/2016 12: 27pm Urine Protein NEGATIVE NEGATIVE 08/23/2016 12:20pm 08/23/2016 12: 27pm Urine Glucose (UA) NEGATIVE NEGATIVE 08/23/2016 12:20pm 08/23/2016 12 :27pm Urine Ketones NEGATIVE NEGATIVE 08/23/2016 12:20pm 08/23/2016 12: 27pm Urine Urobilinogen 0.2 EU/DL NORMAL 08/23/2016 12:20pm 08/23/2016 12: 27pm Urine Bilirubin NEGATIVE NEGATIVE 08/23/2016 12:20pm 08/23/2016 12: 27pm Urine Blood NEGATIVE NEGATIVE 08/23/2016 12:20pm 08/23/2016 12:27pm Urinalysis Comment MICROSCOPIC NOT IND. 08/23/2016 12:20pm 2016 12:27pm Procedures No known history of procedures. Encounters Encounter Location Arrival/Admit Date Discharge/Depart Date Attending Provider Departed Emergency Room [facility] 08/23/16 11:06am 08/23/16 4: 28pm TONO WINKLER DO [facility] 08/14/16 2:47pm SHANNON NANCE APRN Recent Diagnosis
--- NOTE | 2016-09-27 14:08 | NUR ---
PROVIDER N NOLD TURN MACHINE OPERATOR AT BEDSIDE
[2016-09-27] MEDS ORDERED: FLUT16SP EA NOSTRIL (14:10)
[2016-09-27] MEDS ORDERED: ONDA-56 PO (14:10)
[2016-09-27] MEDS ORDERED: IBUP-1724 PO (14:10)
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
[2016-09-27] MEDS ORDERED: HYDR-4246 PO (14:59)
[2016-09-27] MEDS ORDERED: FLUORESCEIN SODIUM 1 MG/STRIP LEFT EYE ONE (15:00)
[2016-09-27] MEDS ORDERED: TETRACAINE 0.5% EYE DROPS 4ml BOTTLE LEFT EYE ONE (15:00)
--- NOTE | 2016-09-27 15:11 | NUR ---
DISMISSAL AMB Black FRIEND
[2016-09-27 15:17] VITALS: BP 124/83; PULSE 83; RESP 16; TEMP 98.3; O2SAT 98
--- NOTE | 2016-09-27 21:08 | DI ---
Indication: ITS.REASON: HEAD INJURY, trauma PROCEDURE: CT HEAD W/O CONTRAST: Encounter: Initial Comparison: None Technique: Axial CT images through the head were performed without contrast. Iterative Reconstruction dose reducing technique was utilized. FINDINGS: The ventricles are of normal size, shape, and configuration for the patient's age. There is no evidence of acute intracranial hemorrhage, midline displacement, or mass effect. The CT attenuation of the brain parenchyma is normal within the cerebellum, brain stem, and cerebral hemispheres. The tympanic cavities and mastoid air cells are free of appreciable disease. There are no definite fractures of the skull base, calvarium, or visualized portion of the midface. IMPRESSION: No CT evidence of acute traumatic intracranial injury. There is a preliminary report by [employer] .
--- NOTE | 2016-09-27 21:09 | DI ---
Indication: ITS.REASON: FACIAL INJURY, trauma PROCEDURE: CT MAXILLOFACIAL W/O CONTRAST: Encounter: Initial Comparison: None Technique: Axial noncontrast CT images through the mid face were performed with coronal and sagittal two-dimensional reformats. Automated Exposure Control and Iterative Reconstruction dose reducing techniques were utilized. Findings: No acute maxillofacial fracture identified. Mild sinus disease in the left frontoethmoidal recess region. Prior dental restorations. The globes are intact. Lenses are located. Right frontal scalp swelling. Impression: No acute fracture. There is a preliminary report by [employer]. .
== END 2016-09-27 15:11 | disposition home or self-care (01) ==
LOC: ED 13:56
DX: S00.83XA Contusion of other part of head, initial encounter (principal); S00.12XA Contusion of left eyelid and periocular area, initial encounter; S00.11XA Contusion of right eyelid and periocular area, initial encounter; S00.531A Contusion of lip, initial encounter; Y04.2XXA Assault by strike against or bumped into by another person, initial encounter; Y93.9 Activity, unspecified; Y92.009 Unspecified place in unspecified non-institutional (private) residence as the place of occurrence of the external cause; Y99.8 Other external cause status